=== PATIENT | male | born 1950 | race African-American/Black ===

== ENCOUNTER 2018-03-04 12:39 | Emergency (ER) | payer OTHER ==
[~2018-03-04] VITALS: Ht 175.3 cm; Wt 97.5 kg
--- NOTE | ~2018-03-04 | EKG ---
[place] [address] [facility] [place] [address] ELECTROCARDIOGRAM REPORT Name: DANIEL WILKS Room #: DEP Jakub#: [id number] Admission: 03/04/18 Attend Phys: Discharge: 03/04/18 Date of : 48 Report #: [id number] THIS REPORT FOR: //name// [facility] ED Test Date: 2018-03-04 Test Time: 12:45:18 Pat Name: DANIEL WILKS Department: Room: Gender: M Media Production Operator: [facility] : 1950 Requested By: Gregorio Skinner Order Number: [id number] MD: Brent Angel Measurements Intervals [place] Rate: 109 P: 43 OK: 151 QRS: 34 QRSD: 87 T: 87 QT: 323 QTc: 436 Interpretive Statements Sinus tachycardia Nonspecific ST segment abnormality Baseline wander in lead(s) V2 Compared to ECG 10/06/2012 13:43:25 Poor R-wave progression no longer present Electronically Signed On 03-05-2018 8:45:35 WHITE HAT HACKER by Brent Angel [email or web address] <ELECTRONICALLY SIGNED> By: Brent Angel MD, [facility] 03/05/18 0845 1245 1245 Brent Angel MD, FACC /EPI
[~2018-03-04 12:39] MED LIST: ACETAMINOPHEN325 M1 PO; AEROBID7 GM; AMLODIPINE BESY10 MG PO; AMLODIPINE BESYL5 MG PO; ASPIRIN EC81 M1 PO; ATIVAN0.5 MG PO; CRESTOR20 MG PO; CRESTOR40 MG PO; DICLOFENAC SOD50 MG PO; DITROPAN XL5 MG PO; GLYCOLAX POWDER17 G1 PO; LISINOPRIL10 MG PO; LORAZEPAM 1 MG T1 M1 PO; MECLIZINE 25 MG25 M1 PO; NORCO 5-325 TA1 EACH PO; OMEPRAZOLE20 MG PO; PREDNISOLONE 5 M5 M1 PO; PROAIR HFA8.5 GM; PROSCAR 5MG TABL5 M1 PO; RANITIDINE 150150 M1 PO; TAMSULOSIN HCL0.4 MG PO; VALIUM2 MG PO; VIAGRA100 MG PO; ZPAK PO
[2018-03-04 13:54] LABS: ABSOLUTE NEUTROPHILS 9.4 thou/uL (1.4-8.2); BASOPHILS 0.6 % (0.0-2.0); EOSINOPHILS 0.2 % (0.0-3.0); HEMATOCRIT 41.4 % (42.0-52.0); HEMOGLOBIN 13.7 gm/dL (14.0-18.0); LYMPHOCYTES 10.5 % (24.0-44.0); MCH 27.5 pg (26.0-34.0); MCHC 33.1 g/dL (28.0-37.0); MCV 82.9 fL (80.0-100.0); MONOCYTES 6.4 % (1.0-8.0); PLATELET COUNT 312 thou/uL (150-400); POLYS 82.3 % (36.0-66.0); RDW 14.2 % (10.5-14.5); WBC 11.4 thou/uL (4.0-11.0)
[2018-03-04 14:01] LABS: ANION GAP 12 mmol/L (7-16); BUN 11 mg/dL (7-18); CALCIUM 9.7 mg/dL (8.5-10.1); CHLORIDE 103 mmol/L (98-107); CO2 24 mmol/L (21-32); CREATININE 0.8 mg/dL (0.7-1.3); GLUCOSE 97 mg/dL (74-106); POTASSIUM 3.6 mmol/L (3.5-5.1); SODIUM 139 mmol/L (136-145)
[2018-03-04 14:10] LABS: TROPONIN-I <0.06 ng/mL (<0.06)
[2018-03-04] MEDS ORDERED: ATIVAN0.5 MG PO (14:45)
[2018-03-04 15:09] VITALS: BP 146/78
== END 2018-03-04 15:09 | disposition home or self-care (01) ==
LOC: ER 12:39
PROVIDERS: Emergency Medicine
DX: R07.89 Other chest pain (principal); N40.0 Benign prostatic hyperplasia without lower urinary tract symptoms; I10 Essential (primary) hypertension; E78.5 Hyperlipidemia, unspecified

== ENCOUNTER 2018-04-08 21:22 | Emergency (ER) | payer OTHER ==
[~2018-04-08] VITALS: Ht 175.3 cm; Wt 99.8 kg
[2018-04-08] MEDS ORDERED: TRAZODONE HCL50 MG PO (21:35)
[2018-04-08] MEDS ORDERED: ULTRAM 50MG TAB50 MG PO (22:10)
[2018-04-08] MEDS ORDERED: NORFLEX100 MG PO (22:10)
[2018-04-08 22:37] VITALS: BP 141/74
--- NOTE | 2018-04-09 10:10 | EKG ---
[place] [address] [facility] [place] [address] ELECTROCARDIOGRAM REPORT Name: EFEDANIEL Dockery Room #: [facility]P [facility] [id number] Admission: 04/08/18 Attend Phys: Discharge: 04/08/18 Date of : [birth year] Report #: [id number] THIS REPORT FOR: //name// [facility] ED Test Date: 2018-04-08 Test Time: 22:10:17 Pat Name: DANIEL WILKS Department: Room: Gender: Knockout Machine Operator: [facility] : 1950 Requested By: Daniel Keller Order Number: [id number] MD: Brent Angel Measurements Intervals [place] Rate: 79 P: 42 [place]: 160 QRS: 28 QRSD: 90 T: 45 QT: 328 QTc: 376 Interpretive Statements Sinus rhythm Nonspecific T wave abnormality Compared to ECG 03/04/2018 12:45:18 Sinus tachycardia no longer present Electronically Signed On 04-09-2018 10:10:01 MIX CRUSHER OPERATOR by Brent Angel [email or web address] <ELECTRONICALLY SIGNED> By: Brent Angel MD, [facility] 04/09/18 1010 2210 09 Brent Angel MD, FACC /EPI
== END 2018-04-08 22:38 | disposition home or self-care (01) ==
LOC: ER 21:22
DX: S29.012A Strain of muscle and tendon of back wall of thorax, initial encounter (principal); X58.XXXA Exposure to other specified factors, initial encounter; Y93.89 Activity, other specified; Y92.89 Other specified places as the place of occurrence of the external cause; Y99.8 Other external cause status; I10 Essential (primary) hypertension; E78.5 Hyperlipidemia, unspecified; N40.0 Benign prostatic hyperplasia without lower urinary tract symptoms

== ENCOUNTER 2018-04-17 20:40 | Emergency (ER) | payer OTHER ==
[~2018-04-17] VITALS: Ht 175.3 cm; Wt 99.8 kg
[~2018-04-17 20:40] MED LIST changes: +NORFLEX100 MG PO; +TRAZODONE HCL50 MG PO; +ULTRAM 50MG TAB50 MG PO
[2018-04-17 21:00] VITALS: BP 151/78
[2018-04-18] MEDS ORDERED: ATIVAN0.5 MG PO (18:02)
== END 2018-04-17 21:43 | disposition home or self-care (01) ==
LOC: ER 20:40
DX: N40.0 Benign prostatic hyperplasia without lower urinary tract symptoms (principal); I10 Essential (primary) hypertension; E78.5 Hyperlipidemia, unspecified

== ENCOUNTER 2018-04-18 16:03 | Emergency (ER) | payer OTHER ==
[~2018-04-18] VITALS: Ht 175.3 cm; Wt 99.8 kg
[2018-04-18 17:23] LABS: ABSOLUTE NEUTROPHILS 7.2 thou/uL (1.4-8.2); BASOPHILS 0.2 % (0.0-2.0); EOSINOPHILS 0.4 % (0.0-3.0); HEMATOCRIT 42.5 % (42.0-52.0); HEMOGLOBIN 14.2 gm/dL (14.0-18.0); LYMPHOCYTES 17.2 % (24.0-44.0); MCH 27.4 pg (26.0-34.0); MCHC 33.5 g/dL (28.0-37.0); MCV 81.7 fL (80.0-100.0); MONOCYTES 8.3 % (1.0-8.0); PLATELET COUNT 267 thou/uL (150-400); POLYS 73.9 % (36.0-66.0); RDW 14.4 % (10.5-14.5); WBC 9.8 thou/uL (4.0-11.0)
[2018-04-18 17:25] LABS: URINE BILIRUBIN NEGATIVE (Negative); URINE BLOOD NEGATIVE (Negative); URINE CLARITY CLEAR; URINE COLOR YELLOW; URINE GLUCOSE-RANDOM* NEGATIVE (Negative); URINE KETONES 1+ (Negative); URINE NITRITE-REFLEX NEGATIVE (Negative); URINE PROTEIN (DIPSTICK) NEGATIVE (Negative); URINE SPECIFIC GRAVITY <= 1.005 (1.005-1.035)
[2018-04-18 17:26] LABS: URINE LEUKOCYTES-REFLEX NEGATIVE (Negative); URINE UROBILINOGEN 0.2 E.U./dl (0.2-1.0)
[2018-04-18 17:34] LABS: ANION GAP 13 mmol/L (7-16); BUN 10 mg/dL (7-18); CALCIUM 9.3 mg/dL (8.5-10.1); CHLORIDE 104 mmol/L (98-107); CO2 22 mmol/L (21-32); CREATININE 0.9 mg/dL (0.7-1.3); GLUCOSE 91 mg/dL (74-106); POTASSIUM 3.6 mmol/L (3.5-5.1); SODIUM 139 mmol/L (136-145)
[2018-04-18 17:42] LABS: MAGNESIUM 2.3 mg/dL (1.8-2.4); SGOT 13 U/L (15-37); SGPT 20 U/L (30-65); TOTAL BILIRUBIN 0.4 mg/dL (<0.1-1.0); TROPONIN-I <0.06 ng/mL (<0.06)
[2018-04-18] MEDS ORDERED: ATIVAN0.5 MG PO (18:02)
[2018-04-18 18:42] VITALS: BP 139/79
--- NOTE | 2018-04-18 23:35 | EKG ---
[place] [address] [employer] [place] [address] ELECTROCARDIOGRAM REPORT Name: DANIEL WILKS Room #: DEP [facility] [id number] Admission: 04/18/18 Attend Phys: Discharge: 04/18/18 Date of : [birth year] Report #: [id number] THIS REPORT FOR: //name// [facility] ED Test Date: 2018-04-18 Test Time: 17:02:35 Pat Name: DANIEL WILKS Department: Room: Gender: M Fitness Attendant: : 1950 Requested By: Góemz Lao Order Number: [id number] MD: Darshan Gao Measurements Intervals [place] Rate: 82 P: 20 OR: 154 QRS: 23 QRSD: 82 T: -12 QT: 437 QTc: 511 Interpretive Statements Sinus rhythm Probable left atrial enlargement Borderline T abnormalities, inferior leads Prolonged QT interval Compared to ECG 04/08/2018 22:10:17 Prolonged QT interval now present T-wave abnormality still present Electronically Signed On 04-18-2018 23:35:02 VOCATIONAL REHAB CONSULTANT by Darshan Gao [email or web address] <ELECTRONICALLY SIGNED> By: Darshan Gao MD 04/18/18 2335 170 01 Darshan Gao MD /EDUARDO
== END 2018-04-18 18:43 | disposition home or self-care (01) ==
LOC: ER 16:03
PROVIDERS: Emergency Medicine
DX: F41.9 Anxiety disorder, unspecified (principal); N40.0 Benign prostatic hyperplasia without lower urinary tract symptoms; R06.02 Shortness of breath; I10 Essential (primary) hypertension; E78.5 Hyperlipidemia, unspecified; Z85.46 Personal history of malignant neoplasm of prostate

== ENCOUNTER 2018-06-03 15:19 | Emergency (ER) | payer OTHER ==
[~2018-06-03] VITALS: Ht 175.3 cm; Wt 94.8 kg
[2018-06-03] MEDS ORDERED: KEFLEX500 M1 PO (18:32)
[2018-06-03] MEDS ORDERED: NORCO 5-325 TA1 EACH PO (18:32)
[2018-06-03 18:55] VITALS: BP 139/75
== END 2018-06-03 18:55 | disposition home or self-care (01) ==
LOC: ER 15:19
DX: S82.431A Displaced oblique fracture of shaft of right fibula, initial encounter for closed fracture (principal); L03.115 Cellulitis of right lower limb; N40.0 Benign prostatic hyperplasia without lower urinary tract symptoms; I10 Essential (primary) hypertension; E78.5 Hyperlipidemia, unspecified; W00.0XXA Fall on same level due to ice and snow, initial encounter; Y92.89 Other specified places as the place of occurrence of the external cause; Y93.89 Activity, other specified; Y99.8 Other external cause status

== ENCOUNTER 2019-05-28 13:57 | Emergency (ER) | payer OTHER ==
[~2019-05-28] VITALS: Ht 177.8 cm; Wt 95.3 kg
[~2019-05-28 13:57] MED LIST changes: +KEFLEX500 M1 PO
[2019-05-28] MEDS ORDERED: PROTONIX40 M2 PO ×2 (15:34)
[2019-05-28] MEDS ORDERED: MYRBETRIQ25 MG PO (15:35)
[2019-05-28] MEDS ORDERED: ASA81BEC PO (15:35)
[2019-05-28] MEDS ORDERED: ELMIRON 100 MG100 M1 PO (15:35)
[2019-05-28 16:14] LABS: ABSOLUTE NEUTROPHILS 6.3 thou/uL (1.4-8.2); BASOPHILS 0.6 % (0.0-2.0); EOSINOPHILS 0.4 % (0.0-3.0); HEMATOCRIT 41.1 % (42.0-52.0); HEMOGLOBIN 13.4 gm/dL (14.0-18.0); LYMPHOCYTES 18.6 % (24.0-44.0); MCH 28.2 pg (26.0-34.0); MCHC 32.5 g/dL (28.0-37.0); MCV 86.8 fL (80.0-100.0); MONOCYTES 8.6 % (1.0-8.0); PLATELET COUNT 272 thou/uL (150-400); POLYS 71.8 % (36.0-66.0); RBC 4.74 mil/uL (4.50-6.00); WBC 8.8 thou/uL (4.0-11.0)
[2019-05-28 16:28] LABS: ANION GAP 9 mmol/L (7-16); BUN 9 mg/dL (7-18); CALCIUM 9.1 mg/dL (8.5-10.1); CHLORIDE 104 mmol/L (98-107); CO2 26 mmol/L (21-32); CREATININE 0.8 mg/dL (0.7-1.3); GLUCOSE 102 mg/dL (74-106); POTASSIUM 3.7 mmol/L (3.5-5.1); SODIUM 139 mmol/L (136-145)
[2019-05-28 16:32] LABS: SGOT 14 U/L (15-37); SGPT 19 U/L (30-65); TOTAL BILIRUBIN 0.5 mg/dL (<0.1-1.0); TOTAL PROTEIN 7.9 g/dL (6.4-8.2); TROPONIN-I <0.06 ng/mL (<0.06)
[2019-05-28 17:16] LABS: URINE BILIRUBIN NEGATIVE (Negative); URINE BLOOD NEGATIVE (Negative); URINE CLARITY CLEAR; URINE COLOR YELLOW; URINE GLUCOSE-RANDOM* NEGATIVE (Negative); URINE KETONES NEGATIVE (Negative); URINE LEUKOCYTES-REFLEX NEGATIVE (Negative); URINE NITRITE-REFLEX NEGATIVE (Negative); URINE PROTEIN (DIPSTICK) NEGATIVE (Negative); URINE UROBILINOGEN 0.2 E.U./dl (0.2-1.0)
[2019-05-28] MEDS ORDERED: ATIVAN0.5 M1 PO (18:09)
[2019-05-28] MEDS ORDERED: MOBIC15 MG PO (18:09)
[2019-05-28] MEDS ORDERED: NORFLEX100 MG PO (18:09)
[2019-05-28 18:22] VITALS: BP 145/80
--- NOTE | 2019-05-29 08:17 | EKG ---
[facility] [place] [address] ELECTROCARDIOGRAM REPORT Name: DANIEL WILKS Room #: DEP [facility]#: [id number] Admission: 05/28/19 Attend Phys: Discharge: 05/28/19 Date of : 48 Report #: [id number] THIS REPORT FOR: cc: Tom Marx MD, Santosh MD Couchonnal, Luis F. MD ~ THIS REPORT FOR: //name// [facility] ED Test Date: 2019-05-28 Test Time: 14:12:43 Pat Name: DANIEL WILKS Department: Room: Gender: Creative Art Director: : 1950 Requested By: Daniel Keller Order Number: [id number] : Darshan Gao Measurements Intervals [place] Rate: 85 P: 48 OK: 148 QRS: 25 QRSD: 90 T: 62 QT: 357 QTc: 425 Interpretive Statements Sinus rhythm Probable left atrial enlargement Compared to ECG 04/18/2018 17:02:35 T-wave abnormality no longer present Electronically Signed On 05-29-2019 8:16:[address] MECHANIC by Darshan Gao [email or web address] <ELECTRONICALLY SIGNED> By: Darshan Gao MD 05/29/19 0816 141 141 Darshan Gao MD /EDUARDO
== END 2019-05-28 18:23 | disposition home or self-care (01) ==
LOC: ER 13:57
PROVIDERS: Physician Assistant
DX: R07.89 Other chest pain (principal); M25.561 Pain in right knee; I10 Essential (primary) hypertension; E78.5 Hyperlipidemia, unspecified

== ENCOUNTER 2020-08-18 11:18 | Inpatient (IN) | payer OTHER ==
[~2020-08-18] VITALS: Ht 175.3 cm; Wt 91.2 kg
[~2020-08-18 11:18] MED LIST changes: +ASA81BEC PO; +ATIVAN0.5 M1 PO; +ELMIRON 100 MG100 M1 PO; +MOBIC15 MG PO; +MYRBETRIQ25 MG PO; +PROTONIX40 M2 PO
[2020-08-18 11:29] VITALS: BP 125/71
[2020-08-18 12:07] LABS: BASOPHILS 0.7 % (0.0-2.0); EOSINOPHILS 0.2 % (0.0-3.0); HEMATOCRIT 42.3 % (42.0-52.0); HEMOGLOBIN 13.8 gm/dL (14.0-18.0); LYMPHOCYTES 14.1 % (24.0-44.0); MCH 27.6 pg (26.0-34.0); MCHC 32.7 g/dL (28.0-37.0); MCV 84.3 fL (80.0-100.0); MONOCYTES 11.2 % (1.0-8.0); PLATELET COUNT 297 thou/uL (150-400); POLYS 73.8 % (36.0-66.0); RBC 5.02 mil/uL (4.50-6.00); RDW 15.4 % (10.5-14.5); WBC 12.3 thou/uL (4.0-11.0)
[2020-08-18 12:08] LABS: ANION GAP 11 mmol/L (7-16); BUN 8 mg/dL (7-18); CALCIUM 9.4 mg/dL (8.5-10.1); CHLORIDE 108 mmol/L (98-107); CO2 26 mmol/L (21-32); CREATININE 1.3 mg/dL (0.7-1.3); GLUCOSE 117 mg/dL (74-106); POTASSIUM 3.9 mmol/L (3.5-5.1); SODIUM 145 mmol/L (136-145)
[2020-08-18 12:17] LABS: TROPONIN-I <0.06 ng/mL (<0.06)
--- NOTE | 2020-08-18 13:56 | NUR ---
ANDREA WILKS [phone] GRANDDAUGHTER
[2020-08-18 14:03] LABS: URINE BILIRUBIN NEGATIVE (Negative); URINE BLOOD NEGATIVE (Negative); URINE CLARITY CLEAR; URINE COLOR YELLOW; URINE GLUCOSE-RANDOM* NEGATIVE (Negative); URINE KETONES NEGATIVE (Negative); URINE LEUKOCYTES-REFLEX NEGATIVE (Negative); URINE NITRITE-REFLEX POSITIVE (Negative); URINE PROTEIN (DIPSTICK) NEGATIVE (Negative); URINE UROBILINOGEN 0.2 E.U./dl (0.2-1.0)
[2020-08-18 14:41] LABS: CASTS None Seen /LPF (None Seen); CRYSTALS None Seen /LPF (None Seen); SQUAMOUS 0-3 Few /LPF (0-3); URINE RBC None Seen /HPF (NONE SEEN); URINE WBC-REFLEX 0-5 Rare /HPF (0-5)
[2020-08-18 14:42] LABS: BACTERIA-REFLEX 1-9 Few /HPF (None Seen)
[2020-08-18 15:38] VITALS: BP 134/71
--- NOTE | 2020-08-18 16:14 | EKG ---
[place] [address] [facility] [place] [address] ELECTROCARDIOGRAM REPORT Name: DANIEL WILKS Room #: 456-P ADM IN M.R.#: [id number] Admission: 08/18/20 Attend Phys: Simeon Carrillo MD Discharge: Date of : 48 Report #: [id number] [facility] ED Test Date: 2020-08-18 Test Time: 11:21:48 Pat Name: DANIEL WILKS Department: Room: [facility] Gender: M Receptionist Scheduler: JCHAIREZ : 1950 Requested By: Stalin Quinoenz Order Number: [id number] MD: Cristo Fay Measurements Intervals [place] Rate: 97 P: 52 [place]: 136 QRS: 28 QRSD: 83 T: 224 QT: 315 QTc: 400 Interpretive Statements Sinus tachycardia Ventricular premature complex Probable left atrial enlargement Nonspecific T abnormalities, lateral leads Compared to ECG 05/28/2019 14:12:43 Ventricular premature complex(es) now present T-wave abnormality now present Sinus rhythm no longer present Electronically Signed On 08-18-2020 16:13:46 CDT by Cristo Fay [email or web address] <ELECTRONICALLY SIGNED> By: Cristo Fay MD, FAC 08/18/20 1613 112 1121 Cristo Fay MD, [facility] /EPI
[2020-08-18 17:00] VITALS: BP 158/77
[2020-08-18 21:05] VITALS: BP 135/75
--- NOTE | 2020-08-19 05:40 | NUR ---
Assumed pt care at 1900. A/OX4, VSS. Up ad colten in room,encouraged to call for help as needed. C/o left shoulder pain more with movement,denies chest pain;medicated with Tylenol with relief reported. Voiding per urinal. Does report dizziness on and off though he says it's been on going for years, has a history of vertigo but doesn't take anything for it. Resting quietly at this time, SR on telemetry. Will continue to monitor pt.
[2020-08-19 05:49] LABS: HEMATOCRIT 37.5 % (42.0-52.0); HEMOGLOBIN 12.4 gm/dL (14.0-18.0); MCHC 33.1 g/dL (28.0-37.0); MCV 84.4 fL (80.0-100.0); RBC 4.44 mil/uL (4.50-6.00); RDW 15.5 % (10.5-14.5); WBC 9.9 thou/uL (4.0-11.0)
[2020-08-19 05:56] LABS: CALCIUM 8.7 mg/dL (8.5-10.1); POTASSIUM 3.4 mmol/L (3.5-5.1)
[2020-08-19 07:40] VITALS: BP 155/77
--- NOTE | 2020-08-19 10:09 | NUR ---
Assess due to high nutrition screen risk with unintentional wt loss about 14 lb in 2 mon/6%. Admit with chest pain, workup pending. Pt voices eating slightly less than usual, overall not so many fatty foods anymore. Has regular diet ordered, denied need for supplements. Ate 80% of dinner last evening. Low nutrition risk at this time
--- NOTE | 2020-08-19 11:58 | NUR ---
PT ADMITTED RELATED TO CHEST PAIN. CM REVIEWED CHART AND SPOKE WITH CARE TEAM. CM MET WITH PT AT BEDSIDE THIS DAY. PT APPEARED TO BE A&O X4. CM ROLE INTRODUCED. PT INDICATED HE RESIDES IN A HOUSE WITH HIS SPOUSE WITH 8 STEPS TO ENTER AND 6 STEPS TO BEDROOMS INSIDE. 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 PT INDICATED NO DME NURSE COLLEGE. PT INDICATED HE PLANS TO RETURN HOME ONCE MEDIALLY STABLE. PT TO HAVE STRESS TEST THIS DAY. CARE TEAM INDICATED THAT DEPENDING ON RESULTS PT MAY BE MEDICALLY STABLE TO DC HOME AFTER TEST. CM FOLLOWING REGARDING DC PLANNING.
[2020-08-19 16:00] VITALS: BP 148/86
--- NOTE | 2020-08-19 19:02 | NUR ---
PATIENT WITH ABNORMAL DOBUTAMINE STRESS ECHO, PLAN FOR CARDIAC CATH TOMORROW. PATIENT TO BE NPO AFTER MIDNIGHT. CONTINUE POC
[2020-08-19 19:44] VITALS: BP 141/74
--- NOTE | 2020-08-20 05:09 | NUR ---
Assumed pt care at 1900. A/OX4,VSS. Denies pain on assessment, no N/V. Up ad colten in room w/o problems. Pt has been NPO since midnight for percutaneous angiogram. C/o heartburn at ,order for Tums obtained and administered and effective. Resting at this time,will continue to monitor pt.
--- NOTE | 2020-08-20 09:25 | CATHLAB ---
[facility] [place] [address] INVASIVE PROCEDURE REPORT Name: DANIEL WILKS Room #: 456-P ADM IN M.R.#: [id number] Admission: 08/18/20 Attend Phys: Simeon Carrillo MD Discharge: Date of : [birth year] Report #: [id number] THIS REPORT FOR: cc: Ladonna Ruiz Shanna R. DO Lundgren, Craig H. MD [facility] ~ APPROVED REPORT Study performed: 08/20/2020 07:40:56 Patient Details Patient Status: In-Patient Room #: The patient is a 70 year-old male Event Personnel Brent Angel Night Club Manager, Marisol Cordoba RTR Monitor, Saray Araujo RT(R)() Kade Aparicio Dexter RN urology physician assistant Performed Art Access - R femoral artery* Left Heart Cath w/or w/o Coronaries [id number] [facility] [address] Initial Mod Sed Same Phys/QHP Gr5y [id number] 88901 Mod Sed Same Phys/QHP Ea [id number] Hemostasis w/ Mynx Procedure Narrative The patient was brought electively to the Cardiac Catheterization Laboratory and was prepped and draped in a sterile manner. The Right Groin^ was infiltrated with 1% Lidocaine subcutaneous anesthesia. A PINNACLE 6FR Sheath #[id number] sheath was inserted into the RFA^. Coronary angiography was performed using coronary diagnostic catheters. The right coronary system was accessed and visualized with a JR4 catheter. The left coronary system was accessed and visualized with a JL4 catheter. The left ventricle was accessed and visualized with a ANGLED PIGTAIL catheter. Left ventricular/Aortic Valve gradient assessed via catheter pullback. Left ventriculogram was performed in 30 degree projection. Closure device was deployed with a Fr MYNXGRIP 6/7F #[id number]. The patient tolerated the procedure well and there were no complications associated with the procedure. There was no hematoma. Intraoperative Conscious Sedation Sedation start time: 8:19 Case end Time: 8:44 Fentanyl 50 mcg Versed 1 mg [facility] [address] [place] [address] INVASIVE PROCEDURE REPORT Name: DANIEL WILKS Room #: 456-P [facility]#: [id number] Admission: 08/18/20 Attend Phys: Simeon Carrillo MD Discharge: Date of : 48 Report #: [id number] Fluoro Time: 1.20 minutes Dose: DAP 2996.40 cGycm2 396 mGy Contrast Type and Amount: Omnipaque 95 ml Coronary Angiography The patient's coronary anatomy is co- dominant. Diagnostic Cath Left Main Normal left main LAD Minimal 10-20% proximal LAD plaquing, otherwise normal Diagonal 1 Large diagonal branch with mild proximal plaquing Circumflex Large codominant circumflex. Mild proximal and mid vessel plaquing (10-20%) OM1 Large first marginal branch with 30% proximal plaquing L PDA Normal posterior descending Right Coronary Large, codominant right coronary, angiographically normal RPLV Normal posterior lateral branch Left Ventriculography The left ventricle is normal in size with normal contractility. The left ventricular ejection fraction is estimated to be 60-65%. Left ventricular wall motion abnormalities are not present. There is no mitral insufficiency. Hemodynamics The aortic pressure is 144/59 mmHg with a mean of 96 mmHg. The left ventricular pressure is 134/5 mmHg with a mean of mmHg. The left ventricular end diastolic pressure is 10 mmHg. Conclusion 1. Normal global and regional left ventricular systolic function. EF 65% 2. Normal left main 3. Mild scattered LAD and circumflex plaquing. Normal codominant right coronary. Recommendations Aggressive Medical Therapy <ELECTRONICALLY SIGNED> By: Brent Angel MD, FACC 08/20/20923 3 3 Brent Angel MD, FACC /INF
--- NOTE | 2020-08-20 09:50 | NUR ---
RECEIVED PT FROM STORM WINDOW INSTALLER AT 0935. PT ALERT AND ORIENTED X4. PT DENIES PAIN AT THIS TIME. PTS RIGHT GROIN SITE IS CLEAN, DRY AND INTACT WITH NO HEMATOMA PRESENT. PT ORIENTED TO CCU AND ROOM. WILL CONTINUE TO MONITOR AND FOLLOW POC.
[2020-08-20 10:06] VITALS: BP 141/74
[2020-08-20 10:10] VITALS: BP 142/63
[2020-08-20] MEDS ORDERED: CELEBREX100 MG/1 C PO (10:24)
== END 2020-08-20 12:35 | disposition home or self-care (01) | DRG 205 ==
LOC: ER 11:18 → 2N 16:09 → 4W 16:09 → EROBS 16:09 → 4W 16:10 → 2N 08-20 09:36
PROVIDERS: Nurse Practitioner; ADMIT Hospitalist; ATTEND Hospitalist
PROC: 4A023N7 Measurement of Cardiac Sampling and Pressure, Left Heart, Percutaneous Approach (ICD-10-PCS; principal; 2020-08-20)
PROC: B2111ZZ Fluoroscopy of Multiple Coronary Arteries using Low Osmolar Contrast (ICD-10-PCS; principal; 2020-08-20)
PROC: B2151ZZ Fluoroscopy of Left Heart using Low Osmolar Contrast (ICD-10-PCS; principal; 2020-08-20)
DX: M94.0 Chondrocostal junction syndrome [Tietze] (principal); R65.11 Systemic inflammatory response syndrome (SIRS) of non-infectious origin with acute organ dysfunction; N39.0 Urinary tract infection, site not specified; R07.89 Other chest pain; I10 Essential (primary) hypertension; E78.5 Hyperlipidemia, unspecified; Z60.2 Problems related to living alone; N40.0 Benign prostatic hyperplasia without lower urinary tract symptoms; M25.512 Pain in left shoulder; Z87.891 Personal history of nicotine dependence; Z79.899 Other long term (current) drug therapy; Z79.82 Long term (current) use of aspirin
CPT/HCPCS: 10040; 10045

== ENCOUNTER 2020-11-20 09:28 | Emergency (ER) | payer OTHER ==
[~2020-11-20] VITALS: Ht 180.3 cm; Wt 96.2 kg
[~2020-11-20 09:28] MED LIST changes: +CELEBREX100 MG/1 C PO
[2020-11-20 09:36] VITALS: BP 125/70
[2020-11-20] MEDS ORDERED: FLEXERIL PO (10:01)
== END 2020-11-20 10:11 | disposition home or self-care (01) ==
LOC: ER 09:28
DX: M54.5 Low back pain (principal); I10 Essential (primary) hypertension; E78.5 Hyperlipidemia, unspecified; Z98.890 Other specified postprocedural states; Z79.891 Long term (current) use of opiate analgesic; Z79.82 Long term (current) use of aspirin; Z79.899 Other long term (current) drug therapy

== ENCOUNTER → 2021-05-25 | Outpatient (CLI) | payer OTHER ==
[~2021-05-25] MED LIST changes: +FLEXERIL PO
== END ==
LOC: SJCVC 13:12
PROVIDERS: ATTEND Internal Medicine
DX: R94.31 Abnormal electrocardiogram [ECG] [EKG] (principal); I25.10 Atherosclerotic heart disease of native coronary artery without angina pectoris; I10 Essential (primary) hypertension; E78.5 Hyperlipidemia, unspecified; R94.39 Abnormal result of other cardiovascular function study; Z87.891 Personal history of nicotine dependence; Z72.89 Other problems related to lifestyle; Z79.82 Long term (current) use of aspirin; Z79.899 Other long term (current) drug therapy